=== PATIENT | female | born 1995 ===

== ENCOUNTER 2021-09-15 13:15 | Inpatient (IN) | payer OTHER ==
[~2021-09-15] VITALS: Ht 162.6 cm; Wt 108.9 kg
[2021-09-25] MEDS ORDERED: IRON236 MG PO (15:29)
[2021-09-25] MEDS ORDERED: FOLIC ACID0.8 M1 PO (15:29)
[2021-09-25] MEDS ORDERED: PRENATAL MULTI1 EAC4 PO (15:29)
== END 2021-10-01 14:29 | disposition home or self-care (01) | DRG 807 ==
LOC: OB/GYN 09-27 13:15 → LDR 09-29 04:18 → OB/GYN 09-29 17:22
PROVIDERS: ADMIT Obstetrics & Gynecology; ATTEND Obstetrics & Gynecology
PROC: 10E0XZZ Delivery of Products of Conception, External Approach (ICD-10-PCS; principal; 2021-09-29)
PROC: 0HQ9XZZ Repair Perineum Skin, External Approach (ICD-10-PCS; 2021-09-29)
PROC: 4A1HXCZ Monitoring of Products of Conception, Cardiac Rate, External Approach (ICD-10-PCS; 2021-09-29)
DX: O70.0 First degree perineal laceration during delivery (principal); Z37.0 Single live birth; Z3A.40 40 weeks gestation of pregnancy; Z20.822 Contact with and (suspected) exposure to COVID-19

== ENCOUNTER 2021-09-25 14:50 | Outpatient (CLI) | payer OTHER ==
[2021-09-25] MEDS ORDERED: PRENATAL MULTI1 EAC4 PO (15:29)
[2021-09-25] MEDS ORDERED: IRON236 MG PO (15:29)
[2021-09-25] MEDS ORDERED: FOLIC ACID0.8 M1 PO (15:29)
== END 2021-09-25 16:32 | disposition home or self-care (01) ==
LOC: OBS/DEL 14:50 → LDR 14:53 → OBS/DEL 15:19
PROVIDERS: ATTEND Obstetrics & Gynecology
DX: O26.893 Other specified pregnancy related conditions, third trimester (principal); Z3A.39 39 weeks gestation of pregnancy; R10.2 Pelvic and perineal pain; N93.0 Postcoital and contact bleeding